=== PATIENT | male | born 1950 | race African-American/Black ===

== ENCOUNTER 2017-04-04 18:02 | Emergency (ER) | payer MEDICARE, OTHER ==
[~2017-04-04] VITALS: Ht 180.3 cm; Wt 86.0 kg
[2017-04-04] MEDS ORDERED: PRED1 PO (18:24)
[2017-04-04 21:33] VITALS: BP 144/87
== END 2017-04-04 21:46 | disposition home or self-care (01) ==
LOC: EMS 18:05
DX: S13.4XXA Sprain of ligaments of cervical spine, initial encounter (principal); F17.210 Nicotine dependence, cigarettes, uncomplicated; V49.9XXA Car occupant (driver) (passenger) injured in unspecified traffic accident, initial encounter; Y93.89 Activity, other specified; Y92.488 Other paved roadways as the place of occurrence of the external cause; Y99.8 Other external cause status
CPT/HCPCS: 72050; 72110; 99284

== ENCOUNTER → 2018-01-29 | Outpatient (CLI) | payer MEDICARE, OTHER ==
[~2018-01-29] MED LIST: PRED1 PO
== END | disposition home or self-care (01) ==
LOC: RADPV 12:05
PROVIDERS: ATTEND Legal Medicine
DX: I70.0 Atherosclerosis of aorta (principal); M51.37 Other intervertebral disc degeneration, lumbosacral region; M47.896 Other spondylosis, lumbar region
CPT/HCPCS: 71046; 72100